=== PATIENT | male | born 1995 | race Caucasian/White ===

== ENCOUNTER 2019-07-07 18:17 | Emergency (ER) | payer OTHER ==
[~2019-07-07] VITALS: Ht 177.8 cm; Wt 127.0 kg
== END 2019-07-07 23:32 | disposition home or self-care (01) ==
LOC: ER 18:17
DX: S76.111A Strain of right quadriceps muscle, fascia and tendon, initial encounter (principal); X50.9XXA Other and unspecified overexertion or strenuous movements or postures, initial encounter; Y93.67 Activity, basketball; Y92.89 Other specified places as the place of occurrence of the external cause; Y99.8 Other external cause status